=== PATIENT | male | born 2000 | race Caucasian/White ===

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

== ENCOUNTER 2020-03-28 11:18 | Emergency (ER) | payer SELFPAY ==
[~2020-03-28] VITALS: Ht 190.5 cm; Wt 124.3 kg
[2020-03-28 11:29] VITALS: Ht 190.5 cm; Wt 124.3 kg
[2020-03-28 12:10] VITALS: BP 142/92
== END 2020-03-28 12:10 | disposition home or self-care (01) ==
LOC: ED 11:18
DX: S51.811D Laceration without foreign body of right forearm, subsequent encounter (principal); X58.XXXD Exposure to other specified factors, subsequent encounter